=== PATIENT | female | born 1985 | race Caucasian/White ===

== ENCOUNTER 2022-08-08 23:09 | Inpatient (IN) | payer BC ==
[2022-08-08] MEDS ORDERED: TERBUTALINE 1 MG/ML VIAL SQ PRN (23:36)
[2022-08-08] MEDS ORDERED: OXYTOCIN 10 UNIT/ML 1 ML VIAL IM PRN (23:36)
[2022-08-08] MEDS ORDERED: LIDOCAINE 0.5% (PF) 5 MG/ML (50 ML SDV) SQ PRN (23:36)
[2022-08-08] MEDS ORDERED: METHYLERGONOVINE 0.2 MG/ML 1 ML AMP IM PRN (23:36)
[2022-08-08] MEDS ORDERED: CARBOPROST TROMETHAMINE 250 MCG/ML 1 ML AMP IM PRN (23:36)
[2022-08-08] MEDS ORDERED: LACTATED RINGERS 1,000 ML IV SCH (23:45)
[2022-08-09 00:37] LABS: ALT 18 U/L (4-34); AST 28 U/L (14-36); African American GFR (CKD) >90 (>60 ml/min/1.73 sqM); Blood Urea Nitrogen 8 mg/dL (7-17); LDH 537 U/L (313-618); Magnesium 1.9 mg/dL (1.6-2.3); Non-African American GFR(CKD) >90 (>60 ml/min/1.73 sqM); Uric Acid 4.5 mg/dL (3.7-7.4)
[2022-08-09 00:46] LABS: INR 0.8 (<1.2); Prothrombin Time 9.4 sec (9.0-12.0)
[2022-08-09 00:51] LABS: Basophils % (A) 0 %; Eosinophils # (A) 0.1 k/uL (0-0.7); Eosinophils % (A) 1 %; HCT 38.7 % (34.0-46.0); HGB 12.4 gm/dL (11.4-16.0); Hypochromasia Slight; Lymphocytes % (A) 15 %; MCH 26.1 pg (25.0-35.0); MCV 81.7 fL (80.0-100.0); Mean Platelet Volume 8.4; Monocytes # (A) 0.5 k/uL (0-1.0); Monocytes % (A) 4 %; Neutrophils # (A) 10.5 k/uL (1.3-7.7); Neutrophils % (A) 79 %; Platelet Count 424 k/uL (150-450); RBC 4.74 m/uL (3.80-5.40); RDW 15.4 % (11.5-15.5); WBC 13.2 k/uL (3.8-10.6)
[2022-08-09] MEDS ORDERED: LABETALOL 100 MG TAB PO ONE (00:52)
--- NOTE | 2022-08-09 01:36 | P.HPOB ---
History of Present Illness H&P Date: 08/09/22 Chief Complaint: Contractions Ms. Marin Cash is a 37 y/o at 39.1 wga who presents with contractions every 2-3 minutes. She notes good movement, no leakage of fluid, no vaginal bleeding. Her has been notable for gestational hypertension for which she takes labetalol 100 bid. She denies any headache, visual disturbances, RUQ pain, or epigastric pain. She has a history of 3 full term vaginal deliveries, all without complications. Largest baby 7#12oz. Last baby 7 years ago. Past Medical History Past Medical History: No Reported History Additional Past Medical History / Comment(s): broken lt arm in 1998 History of Any Multi-Drug Resistant Organisms: None Reported Past Surgical History: No Surgical Hx Reported Past Anesthesia/Blood Transfusion Reactions: No Reported Reaction Past Psychological History: No Psychological Hx Reported Smoking Status: Never smoker Past Alcohol Use History: None Reported Past Drug Use History: None Reported - Past Family History Father Family Medical History: No Reported History Medications and Allergies Home Medications Medication Instructions Recorded Confirmed Type Snw-Nryq-Mceyd Acid 1 cap PO DAILY 04/20/16 04/20/16 History [-U Capsule] Labetalol [Trandate] 100 mg PO BID 08/08/22 08/08/22 History Allergies Allergy/AdvReac Type Severity Reaction Status Date / Time No Known Allergies Allergy Verified 04/20/16 08:28 Exam Vital Signs Temp Pulse Resp BP Pulse Ox 08/08/22 23:53 97.2 F L 99 18 146/78 97 Intake and Output 08/08/22 08/08/22 08/09/22 14:59 22:59 06:59 Other: Weight 89.811 kg Category I FHTs, contractions q1-2 minutes - OBG Physical Exam Cervix: 6/80/-3, AROM performed at the time of exam with clear amniotic fluid noted. Results Result Diagrams: 08/08/22 23:40 08/08/22 23:40 Abnormal Lab Results - Last 24 Hours (Table) 08/08/22 08/08/22 Range/Units 23:40 23:40 WBC 13.2 H (3.8-10.6) k/uL Neutrophils # 10.5 H (1.3-7.7) k/uL Fibrinogen 561 H (200-500) mg/dL
[2022-08-09] MEDS ORDERED: diphenhydrAMINE 25 MG CAP PO PRN (02:06)
[2022-08-09] MEDS ORDERED: BENZOCAINE/MENTHOL SPRAY 1 GM/SPRAY AEROSOL TOPICAL PRN (02:06)
[2022-08-09] MEDS ORDERED: ZOLPIDEM 5 MG TAB PO PRN (02:06)
[2022-08-09] MEDS ORDERED: SIMETHICONE 80 MG CHEWABLE PO PRN (02:06)
[2022-08-09] MEDS ORDERED: diphenhydrAMINE 50 MG/ML 1 ML VIAL IVP PRN ×2 (02:06)
[2022-08-09] MEDS ORDERED: HYDROCORTISONE 2.5% RECTAL CREAM 30 GM TUBE RECTAL PRN (02:06)
[2022-08-09] MEDS ORDERED: LANOLIN CREAM 5 GM TUBE TOPICAL PRN (02:06)
[2022-08-09] MEDS ORDERED: ACETAMINOPHEN TAB 325 MG TAB PO PRN (02:06)
[2022-08-09] MEDS ORDERED: diphenhydrAMINE 50 MG CAP PO PRN (02:06)
[2022-08-09] MEDS ORDERED: OXYTOCIN 30 UNITS/500 ML NS 30 UNIT in SALINE 1 500ML.BAG IV SCH (02:15)
--- NOTE | 2022-08-09 02:26 | P.PNOBGVD ---
Subjective - Subjective Principal diagnosis: Interval history: Preoperative diagnosis: Term at 39 and 1 weeks Procedure performed: Spontaneous vaginal delivery Findings: Viable female infant. Apgars 8 at 1 minute, 9 at 5 minutes. QBL 200. Procedure: The patient is a 37-year-old female who is a with an EDC of 08/08/2022. She is blood type O+. Her was complicated by gestational hypertension on Labetalol 100 twice a day. She presented to triage in active labor. She was admitted to labor and delivery and expectantly managed. Artificial rupture of membranes was performed. The patient quickly progressed to completely dilated. She had spontaneous vaginal delivery of a female at 151 with clear fluid. The head was delivered without difficulty followed by the body over an intact perineum. Gentle traction was used to deliver the placenta. Placenta was inspected and intact. Inspection of the perineum revealed no lacerations requiring repair. On vaginal exam, there were no noted cervical or vaginal sidewall lacerations. Fundal massage revealed an appropriately firm uterus. Mother and infant are doing well at this time. : doing well Objective - Latest Vital Signs Latest vital signs: Vital Signs Temp Pulse Resp BP Pulse Ox 08/08/22 23:53 97.2 F L 99 18 146/78 97 Intake and Output 08/08/22 08/08/22 08/09/22 14:59 22:59 06:59 Other: Weight 89.811 kg - Labs Labs: Abnormal Lab Results - Last 24 Hours (Table) 08/08/22 08/08/22 Range/Units 23:40 23:40 WBC 13.2 H (3.8-10.6) k/uL Neutrophils # 10.5 H (1.3-7.7) k/uL Fibrinogen 561 H (200-500) mg/dL
[2022-08-09] MEDS: SENNOSIDES-DOCUSATE SODIUM 1 EACH TAB PO SCH (09:00)
[2022-08-10] MEDS: IBUPROFEN 600 MG TAB PO PRN ×2 (01:52→10:09)
[2022-08-10] MEDS: SENNOSIDES-DOCUSATE SODIUM 1 EACH TAB PO SCH ×2 (01:54→08:31)
[2022-08-10 08:26] LABS: Basophils % (A) 0 %; Eosinophils # (A) 0.2 k/uL (0-0.7); Eosinophils % (A) 1 %; HCT 28.8 % (34.0-46.0); Hypochromasia Moderate; Lymphocytes # (A) 2.5 k/uL (1.0-4.8); Lymphocytes % (A) 15 %; MCHC 31.2 g/dL (31.0-37.0); MCV 83.3 fL (80.0-100.0); Mean Platelet Volume 8.2; Monocytes # (A) 0.5 k/uL (0-1.0); Monocytes % (A) 3 %; Neutrophils # (A) 13.1 k/uL (1.3-7.7); Neutrophils % (A) 79 %; Platelet Count 350 k/uL (150-450); RBC 3.46 m/uL (3.80-5.40); RDW 15.5 % (11.5-15.5); WBC 16.5 k/uL (3.8-10.6)
[2022-08-10 08:30] VITALS: BP 116/74; PULSE 86; RESP 20; TEMP 98
--- NOTE | 2022-08-10 08:46 | P.DS ---
Providers Date of admission: 08/08/22 23:28 Expected date of discharge: 08/10/22 Attending physician: Margie Ying Primary care physician: Stated None Hospital Course: This is a 37-year-old female 4 para [address] [id number] 2239 and one sevenths weeks' gestation. Patient presented in active labor from home, unremarkable, group B strep cultures negative, rubella status immune. Blood type O+. Please see dictated history and physical for details. Patient rapidly delivered vaginally a liveborn female infant with scores of 8 and 9 at one and 5 minutes respectively. Infant weighed 7 lbs. 5 oz. or 01[birth year]03/2005 grams. Perineal body was intact. Estimated blood loss 200 mL's. Please see dictated delivery note for details. This morning the patient and her are both doing well. Patient is voiding, ambulate in, passing flatus without difficulty. Vital signs are stable and she is afebrile. Breasts are not engorged. There is minimal lochia rubra. No complaints of pain. Patient is judged to be in very good condition for discharge home. She will follow-up with me in the office in 6 weeks. I have reminded her no intercourse, tampons or douching. She will use [id number] Advil or Aleve, or Motrin as needed for pain. She will call with any fevers shakes or chills, foul smelling or copious lochia, with the passage of large blood clots, with any pain not alleviated by [id number] products, or indeed with any concerns. Assessment: Doing well first day Patient Condition at Discharge: Good Plan - Discharge Summary New Discharge Prescriptions: No Action Dzb-Mxgd-Hgohj Acid [-U Capsule] 1 cap PO DAILY Labetalol [Trandate] 100 mg PO BID Discharge Medication List Ddp-Emrn-Eztzk Acid [-U Capsule] 1 cap PO DAILY 04/20/16 [History] Labetalol [Trandate] 100 mg PO BID 08/08/22 [History] Follow up Appointment(s)/Referral(s): Margie Ying MD [STAFF PHYSICIAN] - 6 Weeks Discharge Disposition: HOME SELF-CARE
== END 2022-08-10 11:00 | disposition home or self-care (01) | DRG 807 ==
LOC: FBPOP 23:09 → 4FBP 23:28
PROVIDERS: ADMIT Obstetrics & Gynecology; ATTEND Obstetrics & Gynecology
PROC: 10E0XZZ Delivery of Products of Conception, External Approach (ICD-10-PCS; principal; 2022-08-09)
PROC: 10907ZC Drainage of Amniotic Fluid, Therapeutic from Products of Conception, Via Natural or Artificial Opening (ICD-10-PCS; principal; 2022-08-09)
DX: O36.21 Maternal care for hydrops fetalis, first trimester (principal); Z37.0 Single live birth; O13.4 Gestational [pregnancy-induced] hypertension without significant proteinuria, complicating childbirth; Z3A.39 39 weeks gestation of pregnancy
CPT/HCPCS: 59025; 82565; 83615; 83735; 84450; 84460; 84520; 84550; 85025; 85384; 85610; 85730; 86850; 86900; 86901; 99213